=== PATIENT | female | born 2005 | race Caucasian/White ===

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

== ENCOUNTER 2024-03-06 09:02 | Emergency (ER) | payer OTHER, SELFPAY ==
[2024-03-06 09:03] VITALS: BP 108/71; PULSE 124; RESP 16; TEMP 36.9; O2SAT 99; BMI 20.5
[2024-03-06 09:57] VITALS: BP 102/63; BP 109/60; BP 122/67; PULSE 111; PULSE 89; PULSE 93
[2024-03-06] MEDS: 0.9% Normal Saline (1000mL) 1,000 ML 1000 ML IV (10:03)
[2024-03-06 10:12] LABS: Absolute Neutrophil Count 4.5 X10^3/uL (2.0-7.7); Basophil# 0.03 X10^3/uL; Basophil% 0.5 % (0-1); Eosinophil# 0.02 X10^3/uL; Eosinophils% 0.3 % (0-5); Hematocrit 39.8 % (37-47); Hemoglobin 12.5 g/dL (12.0-15.0); Lymphocyte % 25.5 % (19-41); Mean Corp Hgb Conc 31.4 g/dL (32-36); Mean Platelet Vol. 10.2 fl (6.2-12.0); Monocyte# 0.44 X10^3/uL; Monocyte% 6.6 % (0-10); NRBC Flagged by Analyzer 0 % (0-5); Neutrophil # 4.45 X10^3/uL (2.7-7.7); Neutrophil % 66.8 % (47-70); Platelet Count 267 K/mm3 (150-450); RBC Distribution Width CV 12.3 % (11.6-14.6); RBC Distribution Width SD 39.8 fl (35.1-43.9); Red Blood Count 4.47 M/mm3 (4.2-5.4); White Blood Count 6.7 K/mm3 (4.4-11.0)
[2024-03-06 10:15] LABS: Mucous, Urine 0 SEEN /hpf (<or=2+); Red Blood Cells-Urine 0 SEEN /hpf (0-5); White Blood Cells 0 SEEN /hpf (0-5)
[2024-03-06 10:27] LABS: Color, Urine Yellow (Yellow); Glucose, Dipstick Normal (Normal); Ketone-Dipstick 15 mg/dl (Negative); Leukocyte Esterase-Dipstick 500 /ul (Negative); Nitrite-Dipstick Positive (Negative); Occult Blood-Urine 10 /ul (Negative); Protein-Dipstick 30 mg/dl (Negative); Urine Clarity Clear (Clear); Urine Urobilinogen 1 mg/dl (Normal)
[2024-03-06 10:31] LABS: Urine Bilirubin Dipstick 1 mg/dL (Negative)
[2024-03-06 10:34] LABS: Internal QC Validated? YES +Cl - CLEAR BKGD; Pregnancy, Serum, hCG Quali. NEGATIVE Negative
[2024-03-06 10:35] LABS: Record Kit Lot#, Serum Preg. HCG0000772476
[2024-03-06 10:37] LABS: Anion Gap 5 (5-15); BUN 16 mg/dL (7-18); BUN/Creat Ratio 17.9 RATIO (10-20); Calcium,Total 9.1 mg/dL (8.5-10.1); Chloride 107 mmol/L (98-107); Creatinine, Serum 0.89 mg/dL (0.55-1.02); EST Glomerular Filtration Rate 86 mL/min (>60); Est Glom Filt Rate - Afr Amer 104 mL/min (>60); Estimated Creatinine Clearance 87.36 ml/min; Glucose 93 mg/dL (74-106); Potassium 3.8 mmol/L (3.5-5.1); Sodium Level 139 mmol/L (136-145)
[2024-03-06 10:48] LABS: Bacteria 3+ /hpf (None Seen)
[2024-03-06 10:49] LABS: Squamous Epithelial Cells - UA 10-25 SEEN /hpf (5-10)
[2024-03-06 10:56] LABS: Amphetamine Urine VISTA NEGATIVE (<1000 ng/mL); Barbiturate Urine VISTA NEGATIVE (< 200 ng/mL); Benzodiazepine Urine VISTA NEGATIVE (< 200 ng/mL); Cocaine Urine VISTA NEGATIVE (< 300 ng/mL); Ecstacy Urine VISTA NEGATIVE (< 500 ng/mL); Methadone Urine VISTA NEGATIVE (< 300 ng/mL); PCP Urine VISTA NEGATIVE (< 25 ng/mL); THC Urine VISTA POSITIVE (< 50 ng/mL); Vista UDS pH Range 5
[2024-03-06 13:53] VITALS: BP 95/62; PULSE 85; O2SAT 98
--- NOTE | 2024-03-06 14:19 | EDS_ITS ---
HPI History of Present Illness Chief Complaint: General Illness Detail of Chief Complaint: Not feeling right after consuming edible gummy Informant: patient and spouse/S.O. Onset/Context/Timing Onset: Days Context: Sudden Onset Timing: Continuous and Waxes and wanes Quality: Nausea, altered mentation, vertigo Location: Multiple systems Current Severity: Mild Maximum Severity: Severe Worsened by: Consumption of edible gummy Relieved by: Nothing Associated Symptoms Associated Symptoms: HPI narrative Narrative Narrative: Patient is a 18-year-old who presents because of not feeling well, vertigo, nausea and not her normal self. This started shortly after consumption of an edible gummy. She does report mild headache. Denies double vision blurred vision loss of vision. Denies renal ears decreased hearing. No trouble speech or swallowing. Denies neck pain or neck stiffness. She denies cardiac respiratory symptoms She does denies abdominal pain but does endorse nausea. She has had some vomiting. She has not had vomiting recently. She denies diarrhea. She denies dysuria, frequency, urgency or hematuria. She denies vaginal bleedi ng. She has not had a menses in some time. She is sexually active. Patient has not noted any rash. She denies muscle weakness. She denies altered sensation. She denies walking preferentially to 1 side or the other. Prior similar symptoms: No Recent Illness/Hospitalization: No PFSH PFSH Home Medications ?Medication ?Instructions ?Recorded ?Last Taken ?Type NK 03/25/23 Unknown History Allergy/AdvReac Type Severity Reaction Status Date / Time No Known Allergies Allergy Verified 03/06/24 09:03 Social History (Updated 03/06/24 @ 14:[address] Alexi Saxena MD) household members: significant other Smoking Status: Never smoker substance use type: marijuana ROS ROS ED Constitutional Constitutional ED: Denies chills, fever(s), subjective, sweats or weight loss Eyes Eyes: Denies blurry vision, change in vision or diplopia ENT ENT ED: Denies ear pain, rhinorrhea or sore throat Cardiovascular Cardiovascular: Denies chest pain or palpitations Respiratory/Chest Respiratory/Chest: Denies cough, dyspnea or dyspnea on exertion Gastrointestinal Gastrointestinal: Reports nausea and vomiting; Denies abdominal pain, diarrhea or melena Genitourinary Genitourinary ED: Reports LMP (females 10-50) Details: Comment: (1 year); Denies dysuria, hematuria or urinary frequency Musculoskeletal Musculoskeletal: Denies arthralgias or myalgias Integumentary Denies rash Neurologic Neurologic: Reports weakness; Denies headache(s) or paresthesias Psychiatric Psychiatric: Denies anxiety Endocrine Endocrinology: Denies cold intolerance or heat intolerance Hematologic/Lymphatic Hematologic/Lymphatic: Reports systems reviewed and no addt'l complaints, except as documented EXAM Physical Exam Const Vital Signs: 03/06/24 09:03 03/06/24 09:03 03/06/24 09:57 Temperature 98.5 F Temperature Source Oral Pulse Rate 124 H Pulse Rate [Lying] 89 Pulse Rate [Sitting (for 1 minute prior to obtaining)] 93 Pulse Rate [Standing (for 1 minute prior to obtaining)] 111 H Respiratory Rate 16 Respiratory Pattern Normal Blood Pressure 108/71 Blood Pressure [Lying] 109/60 Blood Pressure [Sitting (for 1 minute prior to obtaining)] 122/67 H Blood Pressure [Standing (for 1 minute prior to obtaining)] 102/63 Blood Pressure Mean 83 Blood Pressure Mean [Lying] 76 Blood Pressure Mean [Sitting (for 1 minute prior to obtaining)] 85 Blood Pressure Mean [Standing (for 1 minute prior to obtaining)] 76 Pulse Ox 99 Oxygen Delivery Method Room Air 03/06/24 13:53 Temperature Temperature Source Pulse Rate 85 Pulse Rate [Lying] Pulse Rate [Sitting (for 1 minute prior to obtaining)] Pulse Rate [Standing (for 1 minute prior to obtaining)] Respiratory Rate Respiratory Pattern Blood Pressure 95/62 Blood Pressure [Lying] Blood Pressure [Sitting (for 1 minute prior to obtaining)] Blood Pressure [Standing (for 1 minute prior to obtaining)] Blood Pressure Mean 73 Blood Pressure Mean [Lying] Blood Pressure Mean [Sitting (for 1 minute prior to obtaining)] Blood Pressure Mean [Standing (for 1 minute prior to obtaining)] Pulse Ox 98 Oxygen Delivery Method Room Air Positive well nourished and well developed Constitutional Narrative: Patient appears pale and not well. General Appearance ED: well developed and pallor; Negative for cyanotic or diaphoretic HEENT Reports dry mucous membranes HEENT Narrative: Head is atraumatic normocephalic. Ears normal. TMs normal. Nares patent. Posterior pharynx is normal. Mouth ED: Yes dry mucous membranes Mouth: dry mucous membranes Eyes PERRL and EOMs intact bilaterally General Eye ED: Negative for pale conjunctiva or scleral icterus Neck no lymphadenopathy, supple and no JVD Chest Wall inspection of chest normal and palpation of chest normal Resp normal respiratory effort and clear to auscultation bilaterally Cardio regular rhythm, S1 normal heart sound, S2 normal heart sound and no murmurs Rate: tachycardic GI normal to inspection, nondistended, normoactive bowel sounds, non-tender, non- distended and no masses; Negative for hepatosplenomegaly Back/Spine no CVA tenderness Extremity normal to inspection Neuro oriented x3, CN's II-XII intact bilaterally and no sensory deficits noted Neuro Narrative: There is no dysmetria. Gait was observed from triage to room and there was no ataxia. Sensorium / Orientation: alert Motor Exam: strength 5/5 throughout Psych mental status grossly normal Skin no rashes or lesions noted, no wounds and skin turgor normal General Skin Exam: elasticity normal and pallor; Negative for jaundice MDM MDM MDM Narrative Medical decision making narrative: Suspect this is due to adverse reaction to edible Gummies. Talk screen was obtained to assess for any other illicit drugs other than cannabinoids. UA to rule out urinary tract infection. Serum test CBC denies white count differential and electrolyte panel to assess electrolytes and glucose as well as CO2 and anion gap. Lab Data Attestation: I reviewed the patient's lab results. Lab results narrative: CBC is normal. Basic metabolic panel is normal. Serum test is negative. UA is a contaminated specimen. Labs: Laboratory Results - last 24 hr 03/06/24 03/06/24 09:50 10:10 WBC 6.7 RBC 4.47 Hgb 12.5 Hct 39.8 MCV 89.0 MCH 28.0 MCHC 31.4 L RDW Std Deviation 39.8 RDW Coeff of Padmini 12.3 Plt Count 267 MPV 10.2 Immature Gran % (Auto) 0.300 Neut % (Auto) 66.8 Lymph % (Auto) 25.5 [place] % (Auto) 6.6 Eos % (Auto) 0.3 Baso % (Auto) 0.5 Absolute Neuts (auto) 4.5 Absolute Lymphs (auto) 1.70 Nucleated RBC % 0 Sodium 139 Potassium 3.8 Chloride 107 Carbon Dioxide 27.0 Anion Gap 5 BUN 16 Creatinine 0.89 Estim Creat Clear Calc 87.36 Est GFR (MDRD) Af Amer 104 Est GFR (MDRD) Non-Af 86 BUN/Creatinine Ratio 17.9 Glucose 93 Calcium 9.1 Serum , Qual NEGATIVE Urine Color Yellow Urine Clarity Clear Urine pH 6.0 Ur Specific [place] 1.020 Urine Protein 30 H Urine Glucose (UA) Normal Urine Ketones 15 H Urine Occult Blood 10 H Urine Nitrite Positive H Urine Bilirubin 1 H Urine Urobilinogen 1 H Ur Leukocyte Esterase 500 H Urine RBC 0 SEEN Urine WBC 0 SEEN Ur Squamous Epith Cells 10-25 SEEN Urine Bacteria 3+ Urine Mucus 0 SEEN Urine Opiates Screen NEGATIVE Urine Methadone Screen NEGATIVE Ur Barbiturates Screen NEGATIVE Ur Phencyclidine Scrn NEGATIVE Ur Amphetamines Screen NEGATIVE MDMA (Ecstasy) Screen NEGATIVE U Benzodiazepines Scrn NEGATIVE Urine Cocaine Screen NEGATIVE U Cannabinoids Screen POSITIVE H Ur Drug Screen Comment Treatment and Re-Evaluation :: Patient was reassessed at 1420. She appears awake alert looks much better. She reports she feels better. Will discharge to home. Told her this is a adverse reaction to the edible gummy. Discharge Plan Triage Chief Complaint: General Illness ED Provider: Alexi Saxena Dx/Rx/DC Orders Clinical Impression: Adverse effect of synthetic cannabinoids, initial encounter, Nausea alone, Acute dehydration, Vertigo Instructions: Understanding Synthetic Marijuana, ED Marijuana Abuse Prescriptions: No Action NK Primary Care Provider: Maggi Mccartney Referrals: Maggi Mccartney MD [Primary Care Provider] - As Needed Print Language: French Disposition Disposition: Home, Self Care
== END 2024-03-06 14:36 | disposition home or self-care (01) ==
PROVIDERS: Emergency Provider Emergency Medicine; PCP Pediatrics; Visit Provider Emergency Medicine
DX: R11.2 Nausea with vomiting, unspecified (principal); T40.725A Adverse effect of synthetic cannabinoids, initial encounter; F12.90 Cannabis use, unspecified, uncomplicated; E86.0 Dehydration
CPT/HCPCS: 80048; 80307; 81001; 84703; 85025; 99284; J7030